=== PATIENT | female | born 1990 | race Two or more races ===

== ENCOUNTER 2021-07-13 14:26 | Emergency (ER) | payer OTHER ==
[2021-07-13] MEDS ORDERED: DIPHTH,PERTUSS(ACELL),TET 0.5 ML DISP.SYRIN IM ONE ×2 (14:39→15:32)
[2021-07-13 15:09] VITALS: BP 133/86; PULSE 88; TEMP 98.7; BMI 25.3
== END 2021-07-13 15:48 | disposition home or self-care (01) ==
LOC: FER 14:26
PROC: 0HQFXZZ Repair Right Hand Skin, External Approach (ICD-10-PCS; principal; 2021-07-13)
PROC: 2W3JX1Z Immobilization of Right Finger using Splint (ICD-10-PCS; 2021-07-13)
DX: S61.214A Laceration without foreign body of right ring finger without damage to nail, initial encounter (principal); W29.0XXA Contact with powered kitchen appliance, initial encounter; W26.8XXA Contact with other sharp object(s), not elsewhere classified, initial encounter
CPT/HCPCS: 90715; 99282-25

== ENCOUNTER 2021-07-22 16:26 | Emergency (ER) | payer OTHER ==
[2021-07-22 16:34] VITALS: BP 128/85; PULSE 68; TEMP 98.8; BMI 25.2
== END 2021-07-22 17:05 | disposition home or self-care (01) ==
LOC: FER 16:26
DX: Z48.02 Encounter for removal of sutures (principal)
CPT/HCPCS: 99281-25